=== PATIENT | female | born 1950 | race Caucasian/White ===

== ENCOUNTER → 2020-09-08 | Outpatient (CLI) | payer MEDICARE, OTHER ==
[~2020-09-08] MED LIST: ANORO ELLIPTA1 EACH INH; ASPIRIN EC81 MG PO; CEFUROXIME500 MG PO; DULOXETINE HCL60 MG PO; IPRAT-ALBUT 0.5-3 ML INH; LASIX20 MG PO; LEVOFLOXACIN500 MG PO; LOPRESSOR100 MG PO; MYCOSTATIN100000 UTS PO; NEURONTIN800 MG PO; POTASSIUM CHLO20 ME1 PO; PROTONIX40 MG PO; VENTOLIN HFA 66.7 GM INH; ZYVOX600 MG PO
== END ==
LOC: KOH-I 15:07
DX: Z87.891 Personal history of nicotine dependence (principal); R91.1 Solitary pulmonary nodule
CPT/HCPCS: 71271